=== PATIENT | female | born 1975 | race Caucasian/White ===

== ENCOUNTER 2019-02-14 10:36 | Emergency (ER) | payer MEDICAID ==
[~2019-02-14] VITALS: Ht 175.3 cm; Wt 108.9 kg
[2019-02-14 10:59] VITALS: BP 118/77
== END 2019-02-14 12:46 | disposition home or self-care (01) ==
LOC: ER 10:36
DX: F31.9 Bipolar disorder, unspecified (principal); Z76.0 Encounter for issue of repeat prescription